=== PATIENT | male | born 1935 | race Caucasian/White ===

== ENCOUNTER → 2020-01-20 11:12 | Outpatient (BNVA) | payer MEDICARE, OTHER, SELFPAY | PROVIDERS: Family Provider Family Medicine; PCP Family Medicine; Visit Provider Nurse Practitioner Family | DX: N40.1 Benign prostatic hyperplasia with lower urinary tract symptoms (principal); R35.1 Nocturia | CPT/HCPCS: 81001 ==

== ENCOUNTER → 2020-02-17 08:15 | Outpatient (BNVA) | payer MEDICARE, OTHER, SELFPAY | PROVIDERS: Family Provider Family Medicine; PCP Family Medicine; Visit Provider Urology | DX: N40.1 Benign prostatic hyperplasia with lower urinary tract symptoms (principal); R97.20 Elevated prostate specific antigen [PSA]; R35.1 Nocturia; N39.41 Urge incontinence | CPT/HCPCS: 81001 ==

== ENCOUNTER → 2020-08-17 08:34 | Outpatient (BNVA) | payer MEDICARE, OTHER, SELFPAY | PROVIDERS: Family Provider Family Medicine; PCP Family Medicine; Visit Provider Urology | DX: N40.1 Benign prostatic hyperplasia with lower urinary tract symptoms (principal) | CPT/HCPCS: 81003 ==

== ENCOUNTER 2020-10-28 13:43 | Outpatient (CLI) | payer MEDICARE, OTHER, SELFPAY ==
--- NOTE | 2020-10-28 14:15 | USCV_ITS ---
RivasJunior john Age: 85 Gender: M : 1935 Exam Date: 10/28/2020 14:07 Ordering Phys: Tahira Chiang MD ([email or web address]) Technologist: Mojgan Urena Exam Location: [facility] [place] Indication: HISTORY: Lower extremity swelling. PROCEDURES: Bilateral duplex Venous Insufficiency study of the Deep and Superficial systems was carried out according to normal protocol with the patient in supine positon for deep system and dependent position for the superficial system. FINDINGS: There is no evidence of bilateral deep vein thrombosis. No evidence of superficial thrombosis in the bilateral saphenous system. No evidence of reflux was noted in the bilateral deep venous system. No venous reflux noted in the bilateral greater saphenous vein. No venous reflux noted in the bilateral small saphenous vein. The veins were found to be easily compressible with spontaneous blood flow. Non pulsatile flow pattern. CONCLUSIONS No evidence of DVT in the above-mentioned identifiable veins. No significant venous reflux either in the deep or in the superficial veins The venous dimensions as mentioned above Dr Joshua Contreras MD [facility] (Electronically Signed) Final Date: 28 October 2020 18:20 S
== END 2020-10-28 13:44 | disposition home or self-care (01) ==
PROVIDERS: Family Provider Family Medicine; PCP Family Medicine; Visit Provider Internal Medicine Cardiovascular Disease
DX: I83.892 Varicose veins of left lower extremity with other complications (principal); M79.89 Other specified soft tissue disorders
CPT/HCPCS: 93970

== ENCOUNTER → 2020-11-09 09:42 | Outpatient (BNVA) | payer MEDICARE, OTHER, SELFPAY | PROVIDERS: Family Provider Family Medicine; PCP Family Medicine; Visit Provider Nurse Practitioner Family | DX: R60.0 Localized edema (principal); L97.929 Non-pressure chronic ulcer of unspecified part of left lower leg with unspecified severity | CPT/HCPCS: 80048; 83880 ==

== ENCOUNTER → 2020-11-17 10:30 | Outpatient (BNVA) | payer MEDICARE, OTHER, SELFPAY | PROVIDERS: Family Provider Family Medicine; PCP Family Medicine; Visit Provider Internal Medicine Cardiovascular Disease | DX: R60.0 Localized edema (principal); I87.2 Venous insufficiency (chronic) (peripheral) | CPT/HCPCS: 80048 ==

== ENCOUNTER 2020-11-25 08:21 | Outpatient (CLI) | payer MEDICARE, OTHER, SELFPAY | END 2020-11-25 08:22 | disposition home or self-care (01) | LOC: WOUND 08:22 | PROVIDERS: Family Provider Family Medicine; PCP Family Medicine; Visit Provider Nurse Practitioner Family | DX: E11.622 Type 2 diabetes mellitus with other skin ulcer (principal); L97.821 Non-pressure chronic ulcer of other part of left lower leg limited to breakdown of skin | CPT/HCPCS: G0463 ==

== ENCOUNTER 2020-11-29 07:41 | Outpatient (CLI) | payer MEDICARE, OTHER, SELFPAY ==
--- NOTE | 2020-11-29 08:00 | USCV_ITS ---
Junior Rob Age: 85 Gender: M : 1935 Exam Date: 11/29/2020 07:55 Ordering Phys: Laurel Molina Technologist: Mojgan Urena Exam Location: [facility] [place] Indication: LOCALIZED EDEMA BP: 134 / 75 HR: 72 Rhythm: Sinus Technical Quality: Adequate MEASUREMENTS (Male / Female) Normal Values 2D ECHO LV Diastolic Diameter PLAX 4.5 cm 4.2 - 5.9 / 3.9 - 5.3 cm LV Systolic Diameter PLAX 2.7 cm IVS Diastolic Thickness 1.5 cm 0.6 - 1.0 / 0.6 - 0.9 cm IVS Systolic Thickness 1.9 cm LVPW Diastolic Thickness 0.9 cm 0.6 - 1.0 / 0.6 - 0.9 cm LVPW Systolic Thickness 1.3 cm RV Chamber Size 2.9 cm LVOT Diameter 2.0 cm LV Ejection Fraction 2D Teich 69.8 % LV Ejection Fraction MOD 2C 66.2 % LV Ejection Fraction 2C AL 68.1 % LA Diameter 3.6 cm LA Width 3.3 cm LA Height 3.0 cm RA Width 3.0 cm RA Height 3.3 cm Aorta at Sinotubular Diameter 2.3 cm M-MODE Aortic Annulus Diameter 2.8 cm LA Ao Ratio MM 1.3 MV E Point Septal Separation 0.3 cm DOPPLER AV Peak Velocity 95.0 cm/s LVOT Peak Velocity 78.0 cm/s AV Area Cont Eq vti 2.5 cm squared AV Area Cont Eq pk 2.6 cm squared MV Area PHT 4.2 cm squared Mitral E to A Ratio 0.5 MV E' Velocity 33.5 cm/s Mitral E to MV E' Ratio 8.2 Mitral E to LV E' Lateral Ratio 10.7 Mitral E to LV E' Septal Ratio 6.7 TR Peak Velocity 220.0 cm/s TR Peak Gradient 19.4 mmHg TV Peak E Velocity 61.0 cm/s PV Peak Velocity 118.5 cm/s RV Acceleration Time 0.1 s RV Ejection Time 0.3 s RV AcT/ET 0.3 FINDINGS Left Ventricle Normal left ventricular cavity size. Normal left ventricular systolic function. No regional wall motion abnormalities. Left ventricular ejection fraction is estimated at 65 %. Grade I/IV diastolic dysfunction (abnormal relaxation filling pattern), normal to mildly elevated filling pressures. Right Ventricle The right ventricle is normal in size and function. RVSP could not be calculated due to incomplete tricuspid regurgitation velocity profile. Right Atrium The right atrium is normal in size. Left Atrium The left atrium is normal in size. Mitral Valve Moderately thickened mitral valve. No mitral valve stenosis. Severe mitral valve regurgitation. Aortic Valve Moderate aortic valve calcification. No aortic valve stenosis. No aortic valve regurgitation. Tricuspid Valve Mild tricuspid valve regurgitation. Thickening of tricuspid valve noted no obvious vegetation noted could be calcification or artifact Pulmonic Valve Structurally normal pulmonic valve without significant stenosis. There is no pulmonic regurgitation. Pericardium Normal pericardium without effusion. Aorta Normal ascending aorta dimension. CONCLUSIONS 1-Normal left ventricular cavity size. Normal left ventricular systolic function. No regional wall motion abnormalities. Left ventricular ejection fraction is estimated at 65 %. Grade I/IV diastolic dysfunction (abnormal relaxation filling pattern), normal to mildly elevated filling pressures. 2-Moderate aortic valve calcification. No aortic valve stenosis. No aortic valve regurgitation. 3-Moderately thickened mitral valve. No mitral valve stenosis. Severe mitral valve regurgitation. 4-There is no pericardial effusion. 5-The right ventricle is normal in size and function. RVSP could not be calculated due to incomplete tricuspid regurgitation velocity profile. 6-There are no prior echocardiogram studies to compare. Tahira Chiang MD (Electronically Signed) Final Date: 30 November 2020 18:58 S
== END 2020-11-29 07:42 | disposition home or self-care (01) ==
PROVIDERS: PCP Family Medicine; Visit Provider Nurse Practitioner Family
DX: R60.0 Localized edema (principal); I08.0 Rheumatic disorders of both mitral and aortic valves
CPT/HCPCS: 93306

== ENCOUNTER 2020-12-02 09:23 | Outpatient (CLI) | payer MEDICARE, OTHER, SELFPAY | END 2020-12-02 09:24 | disposition home or self-care (01) | LOC: WOUND 09:24 | PROVIDERS: PCP Family Medicine; Visit Provider Nurse Practitioner Family | DX: L97.821 Non-pressure chronic ulcer of other part of left lower leg limited to breakdown of skin (principal) | CPT/HCPCS: 97597 ==

== ENCOUNTER 2020-12-09 09:52 | Outpatient (CLI) | payer MEDICARE, OTHER, SELFPAY | END 2020-12-09 09:53 | disposition home or self-care (01) | LOC: WOUND 09:53 | PROVIDERS: PCP Family Medicine; Visit Provider Nurse Practitioner Family | DX: L97.821 Non-pressure chronic ulcer of other part of left lower leg limited to breakdown of skin (principal) | CPT/HCPCS: 11042 ==

== ENCOUNTER 2020-12-16 08:48 | Outpatient (CLI) | payer MEDICARE, OTHER, SELFPAY | END 2020-12-16 08:49 | disposition home or self-care (01) | LOC: WOUND 08:50 | PROVIDERS: PCP Family Medicine; Visit Provider Nurse Practitioner Family | DX: L97.821 Non-pressure chronic ulcer of other part of left lower leg limited to breakdown of skin (principal) | CPT/HCPCS: 99212 ==

== ENCOUNTER 2021-01-06 10:16 | Outpatient (CLI) | payer MEDICARE, OTHER, SELFPAY | END 2021-01-06 10:17 | disposition home or self-care (01) | LOC: WOUND 10:17 | PROVIDERS: PCP Family Medicine; Visit Provider Emergency Medicine | DX: Z09 Encounter for follow-up examination after completed treatment for conditions other than malignant neoplasm (principal) | CPT/HCPCS: 99212 ==

== ENCOUNTER 2021-02-02 13:14 | Inpatient (IN) | payer MEDICARE, OTHER, SELFPAY ==
[2021-02-02] VITALS (9 sets, daily range): BP systolic 117–178; BP diastolic 67–99; PULSE 68–89; RESP 17–24; TEMP 36.6; O2SAT 92–99; BMI 24.1; BMI 25.2
--- NOTE | 2021-02-02 13:26 | XR_ITS ---
WS: [id number] Exam: XR chest 1V portable [id number] Date/Time of Exam: 02/02/2021 1:28 PM Reason For Exam: dyspnea/cough No priors. The lungs are clear and fully expanded. No pleural effusions. Cardiomediastinal silhouette is unremar kable for technique. Regional bony structures are intact. XR/XR chest 1V portable [id number] IMPRESSION: 1. No acute cardiopulmonary finding.
--- NOTE | 2021-02-02 13:27 | ECG_ITS ---
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 Measurements Intervals [place] Rate: 72 P: 27 VT: 173 QRS: -67 QRSD: 145 T: -10 QT: 438 QTc: 481 Interpretive Statements SINUS RHYTHM RIGHT BUNDLE BRANCH BLOCK [120+ ms QRS DURATION, UPRIGHT V1, 40+ ms S IN I/aVL/V4/V5/V6] LEFT ANTERIOR FASCICULAR BLOCK [QRS AXIS <= -45, QR IN I, RS IN II] MODERATE VOLTAGE CRITERIA FOR LVH, CONSIDER NORMAL VARIANT [MEETS CRITERIA IN ONE OF: R(aVL), S(V1), R(V5), R(V5/V6)+S(V1)] Compared to ECG 09/19/2018 17:38:10 Right bundle-branch block now present Left anterior fascicular block now present Left-axis deviation no longer present Electronically Signed On 02-02-2021 21:30:44 CDT by Joshua Contreras M.D. [id number] f
--- NOTE | 2021-02-02 13:31 | PC.NURSE ---
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
--- NOTE | 2021-02-02 13:39 | W.ED.SOB ---
HPI - SOB/Dyspnea General: Chief Complaint: Shortness of Breath/Dyspnea Stated Complaint: DIFF BREATHING Time Seen by Provider: 02/02/21 13:16 History of Present Illness: HPI Narrative: 85-year-old male arrives in the emergency room via EMS complaining of shortness of breath. Patient has been seeing Dr. Murry presumably for congestive heart failure. They stated he had fluid on his heart and lungs. Reviewing the notes from Dr. Murry's office that there is some concern of mitral regurg. He is denying any chest pain at this time. MD elicited complaint: shortness of breath and cough Pertinent past history: congestive heart failure Onset (ago): day(s) Timing: intermittent Severity: moderate Exacerbating factors: exertion and coughing Relieving factors: oxygen and rest Associated symptoms: Reports chest congestion; Deny abdominal pain, chest pain, cough, diaphoresis, dizziness, extremity pain, fever(s), hemoptysis, lightheadedness, myalgias, nausea, orthopnea, palpitations, paresthesias, polydipsia, polyuria, rash, sense of impending doom, syncope or vomiting Treatment prior to arrival: oxygen Review of Systems Const: Denies: fever(s) or diaphoresis ENMT: Denies: throat pain, ear or mastoid pain, nasal discharge or nasal congestion Card: Denies: chest pain, palpitations, lightheadedness, syncope or orthopnea Resp: Reports: chest congestion; Denies: hemoptysis GI: Denies: abdominal pain, nausea or vomiting : Denies: flank pain, dysuria, urinary frequency or urinary urgency Musc: Denies: extremity pain Skin/Breast: Denies: rash or pruritus Neuro: Denies: dizziness Endo: Denies: polyuria or polydipsia PFSH ED PFSH: Medical History Anal stricture BPH loc w urin obs/LUTS Elevated PSA HTN (hypertension) Mitral valve regurgitation Osteoarthritis Surgical History Hx of hemorrhoidectomy Hx of prostate biopsy Family History (Updated 02/02/21 @ 18:39 by Dolly Martinez MD) Father , AT AGE 79 LUNG CANCER Cancer Mother , at age 93 No problems noted. Sister , Pancreatic cancer No problems noted. Brother , Lung cancer No problems noted. Brother Cancer Social History Alcohol intake: never Adopted: No Caregiver/support person: No Lives independently: No Household members: spouse Marital status: Current occupational status: retired Physical Exam Const: COMMON NORMALS: no acute distress GENERAL APPEARANCE: cooperative and comfortable ORIENTATION/CONSCIOUSNESS: Yes awake, Yes oriented to person, Yes oriented to place and Yes oriented to time HENMT: COMMON NORMALS: normocephalic, atraumatic and hearing grossly normal bilaterally HEAD & SCALP: normocephalic and atraumatic Neck/C-Spine: COMMON NORMALS: no JVD Resp: COMMON NORMALS: normal respiratory effort, No retractions, No use of accessory muscles and clear to auscultation bilaterally AUSCULTATION: clear to auscultation bilaterally Cardio: COMMON NORMALS: no JVD, regular rate, regular rhythm and No murmurs present (Cardio) RATE: regular rate RHYTHM: regular rhythm GI: COMMON NORMALS: Soft to palpation and No hepatosplenomegaly present AUSCULTATION: Yes normoactive bowel sounds PALPATION: Yes Soft to palpation, No Tenderness to palpation present (GI), No Guarding due to palpation present (GI) and Yes No hepatosplenomegaly present Extremity: COMMON NORMALS: normal to inspection, capillary refill normal, no clubbing, cyanosis or edema, no calf tenderness and no pedal edema Neuro: SENSORIUM/ORIENTATION: Yes oriented to person, Yes oriented to place and Yes oriented to time Skin: COMMON NORMALS: no rashes or lesions noted GENERAL SKIN EXAM: no rashes or lesions noted Course Vital Signs: Vital signs: Vital Signs Temperature 97.9 F 02/04/21 14:58 Pulse Rate 76 02/04/21 14:58 Respiratory Rate 18 02/04/21 14:58 Blood Pressure 116/67 02/04/21 14:58 Pulse Oximetry 92 02/04/21 14:58 MDM - SOB/Dyspnea MDM Narrative: Medical decision making narrative: Labs imaging and EKG reviewed on the chart we will go admit the patient with bilateral PE complicated by his mitral valve regurgitation. As well as diastolic congestive heart failure and hypertension. Concerned with his underlying heart issues and about deterioration with this new PE. He is requiring significant oxygen supplementation. Discussed with hospitalist orders are written. Lab Data: Labs: Lab Results 02/02/21 02/02/21 02/02/21 13:00 13:00 13:00 WBC 11.7 10^3/uL H 10 ^3/uL (4.0-10.0) RBC 4.24 10^6/uL 10^6 /uL (4.1-5.3) Hgb 13.6 g/dL g/dL (11.7-16.6) Hct 41.5 % L % (42.0-52.0) MCV 97.9 fl H fl (80-94) MCH 32.1 pg pg (28.0-34.0) MCHC 32.8 g/dL g/dL (30.0-36.0) RDW 14.0 % % (12.1-15.1) Plt Count 177 10^3/cmm 10^3 /cmm (130-400) MPV 10.3 fL fL (7.4-10.4) Neut % (Auto) 80.3 % % Lymph % (Auto) 9.4 % % [place] % (Auto) 7.6 % % Eos % (Auto) 0.3 % % Baso % (Auto) 0.2 % % Neut # (Auto) 9.36 10^3/uL H 10 ^3/uL (1.8-7.7) Lymph # (Auto) 1.1 10^3/uL 10^3/ uL (0.8-4.8) [place] # (Auto) 0.9 10^3/uL 10^3/ uL (0.2-0.9) Eos # (Auto) 0.0 10^3/uL 10^3/ uL (0.0-0.8) Baso # (Auto) 0.0 10^3/uL 10^3/ uL (0.0-0.1) Nucleated RBC % (a uto) 0.2 % % Nucleated RBCs # 0.0 /100WBC /100W BC Specimen Type Sample Site ABG pH ABG pCO2 ABG pO2 ABG HCO3 ABG O2 Saturation ABG Base Excess Pedro Test A-a O2 Gradient Hematocrit Hgb O2 Saturation Carboxyhemoglobin Methemoglobin Total Hemoglobin Ionized Calcium O2 Delivery Device O2 Liters/Min Information Systems Analyst ID Sodium 134 mmol/L L mmol /L (136-145) Potassium 3.2 mmol/L L mmol /L (3.5-5.1) Chloride 90 mmol/L L mmol/ L (98-107) Carbon Dioxide 34 mmol/L H mmol/ L (22-29) Anion Gap 13.2 (5-19) BUN 29 mg/dL H mg/dL (8-23) Creatinine 0.9 mg/dL mg/dL (0.7-1.2) GFR Calculation Not Reportable Glucose 158 mg/dL H mg/dL (65-115) Calculated Osmolal ity 287 mOsm/kg mOsm/ kg (285-295) Calcium 8.4 mg/dL L mg/dL (8.5-10.5) Magnesium 2.3 mg/dL mg/dL (1.7-2.3) Total Bilirubin 0.2 mg/dL mg/dL (0.15-1.2) AST 19 U/L U/L (0-40) ALT 18 U/L U/L (0-41) Alkaline Phosphata se 55 IU/L IU/L (40-130) Creatine Kinase 40 U/L U/L (39-308) Troponin T Baselin e 61 ng/L H ng/L (0-15) Troponin T 120 Min [place] Delta Troponin T Troponin T Hi Sens 6Hr Troponin T Hi Sens 6Hr Delta NT-Pro-B Natriuret Pep 734 pg/mL H pg/mL (0-450) Total Protein 5.2 g/dL L g/dL (6.6-8.7) Albumin 3.4 g/dL L g/dL (3.5-5.2) Globulin 1.8 g/dL g/dL (1.3-4.6) Procalcitonin Urine Color Urine Appearance Urine pH Ur Specific Gravit y Urine Protein Urine Glucose (UA) Urine Ketones Urine Blood Urine Nitrate Urine Bilirubin Urine Urobilinogen Ur Leukocyte Kathy ase Nasal/Oral COVID-1 9 PCR 02/02/21 02/02/21 02/02/21 13:35 13:43 15:03 WBC RBC Hgb Hct MCV MCH MCHC RDW Plt Count MPV Neut % (Auto) Lymph % (Auto) [place] % (Auto) Eos % (Auto) Baso % (Auto) Neut # (Auto) Lymph # (Auto) [place] # (Auto) Eos # (Auto) Baso # (Auto) Nucleated RBC % (a uto) Nucleated RBCs # Specimen Type Arterial Sample Site Brachial, left ABG pH 7.54 H (7.35-7.45) ABG pCO2 41.4 mmHg mmHg (35-45) ABG pO2 119.0 mmHg H mmHg (80.0-100.0) ABG HCO3 35.7 mmol/L H mmo l/L (22-26) ABG O2 Saturation 99.5 ABG Base Excess 11.9 mmol/L H mmo l/L (-2.0-2.0) Pedro Test Pos A-a O2 Gradient Not Reportable Hematocrit 41.8 % L % (42-52) Hgb O2 Saturation 97.5 % % (95-100) Carboxyhemoglobin 1.1 %THgb %THgb (0.4-20.1) Methemoglobin 0.9 % % (0.4-1.5) Total Hemoglobin 13.7 g/dL L g/dL (14-18) Ionized Calcium 1.1 mmol/L mmol/L (1.1-1.4) O2 Delivery Device Nc O2 Liters/Min 4.0 % % Information Systems Analyst ID Broma Sodium 137.0 mmol/L mmol /L (131-143) Potassium 3.2 mmol/L L mmol /L (3.5-5.0) Chloride Carbon Dioxide Anion Gap BUN Creatinine GFR Calculation Glucose 190.0 mg/dL H mg/ dL (70-115) Calculated Osmolal ity Calcium Magnesium Total Bilirubin AST ALT Alkaline Phosphata se Creatine Kinase Troponin T Baselin e Troponin T 120 Min [place] 55.26 ng/L H ng/L (0-15) Delta Troponin T -5.74 ABS# L ABS# (0-10) Troponin T Hi Sens 6Hr Troponin T Hi Sens 6Hr Delta NT-Pro-B Natriuret Pep Total Protein Albumin Globulin Procalcitonin Urine Color Straw (Yellow) Urine Appearance Clear (CLEAR) Urine pH 7 (5-7) Ur Specific Gravit y 1.010 (1.005-1.030) Urine Protein Neg (Negative) Urine Glucose (UA) Norm (Normal) Urine Ketones Negative (Negative) Urine Blood Neg (Negative) Urine Nitrate Negative (Negative) Urine Bilirubin Neg (Negative) Urine Urobilinogen Norm mg/dL mg/dL (Negative) Ur Leukocyte Kathy ase Negative (Negative) Nasal/Oral COVID-1 9 PCR 02/02/21 02/03/21 02/03/21 19:15 00:30 05:29 WBC 9.5 10^3/uL 10^3/ uL (4.0-10.0) RBC 3.85 10^6/uL L 10 ^6/uL (4.1-5.3) Hgb 12.4 g/dL g/dL (11.7-16.6) Hct 37.5 % L % (42.0-52.0) MCV 97.4 fl H fl (80-94) MCH 32.2 pg pg (28.0-34.0) MCHC 33.1 g/dL g/dL (30.0-36.0) RDW 13.8 % % (12.1-15.1) Plt Count 148 10^3/cmm 10^3 /cmm (130-400) MPV 10.0 fL fL (7.4-10.4) Neut % (Auto) 78.1 % % Lymph % (Auto) 10.4 % % [place] % (Auto) 8.3 % % Eos % (Auto) 0.1 % % Baso % (Auto) 0.2 % % Neut # (Auto) 7.44 10^3/uL 10^3 /uL (1.8-7.7) Lymph # (Auto) 1.0 10^3/uL 10^3/ uL (0.8-4.8) [place] # (Auto) 0.8 10^3/uL 10^3/ uL (0.2-0.9) Eos # (Auto) 0.0 10^3/uL 10^3/ uL (0.0-0.8) Baso # (Auto) 0.0 10^3/uL 10^3/ uL (0.0-0.1) Nucleated RBC % (a uto) 0.2 % % Nucleated RBCs # 0.0 /100WBC /100W BC Specimen Type Sample Site ABG pH ABG pCO2 ABG pO2 ABG HCO3 ABG O2 Saturation ABG Base Excess Pedro Test A-a O2 Gradient Hematocrit Hgb O2 Saturation Carboxyhemoglobin Methemoglobin Total Hemoglobin Ionized Calcium O2 Delivery Device O2 Liters/Min Information Systems Analyst ID Sodium Potassium Chloride Carbon Dioxide Anion Gap BUN Creatinine GFR Calculation Glucose Calculated Osmolal ity Calcium Magnesium Total Bilirubin AST ALT Alkaline Phosphata se Creatine Kinase Troponin T Baselin e Troponin T 120 Min [place] Delta Troponin T Troponin T Hi Sens 6Hr 58.17 ng/L H ng/L (0-15) Troponin T Hi Sens 6Hr Delta -2.83 ng/L L ng/L (0-12) NT-Pro-B Natriuret Pep Total Protein Albumin Globulin Procalcitonin Urine Color Urine Appearance Urine pH Ur Specific Gravit y Urine Protein Urine Glucose (UA) Urine Ketones Urine Blood Urine Nitrate Urine Bilirubin Urine Urobilinogen Ur Leukocyte Kathy ase Nasal/Oral COVID-1 9 PCR Not detected 02/03/21 02/03/21 05:29 05:29 WBC RBC Hgb Hct MCV MCH MCHC RDW Plt Count MPV Neut % (Auto) Lymph % (Auto) [place] % (Auto) Eos % (Auto) Baso % (Auto) Neut # (Auto) Lymph # (Auto) [place] # (Auto) Eos # (Auto) Baso # (Auto) Nucleated RBC % (a uto) Nucleated RBCs # Specimen Type Sample Site ABG pH ABG pCO2 ABG pO2 ABG HCO3 ABG O2 Saturation ABG Base Excess Pedro Test A-a O2 Gradient Hematocrit Hgb O2 Saturation Carboxyhemoglobin Methemoglobin Total Hemoglobin Ionized Calcium O2 Delivery Device O2 Liters/Min Information Systems Analyst ID Sodium 136 mmol/L mmol/L (136-145) Potassium 3.1 mmol/L L mmol /L (3.5-5.1) Chloride 96 mmol/L L mmol/ L (98-107) Carbon Dioxide 34 mmol/L H mmol/ L (22-29) Anion Gap 9.1 (5-19) BUN 26 mg/dL H mg/dL (8-23) Creatinine 0.6 mg/dL L mg/dL (0.7-1.2) GFR Calculation Not Reportable Glucose 95 mg/dL mg/dL (65-115) Calculated Osmolal ity 287 mOsm/kg mOsm/ kg (285-295) Calcium 8.1 mg/dL L mg/dL (8.5-10.5) Magnesium Total Bilirubin AST ALT Alkaline Phosphata se Creatine Kinase Troponin T Baselin e Troponin T 120 Min [place] Troponin T Troponin T Hi Sens 6Hr Troponin T Hi Sens 6Hr [place] NT-Pro-B Natriuret Pep Total Protein Albumin Globulin Procalcitonin 0.08 ng/mL ng/mL (0-0.5) Urine Color Urine Appearance Urine pH Ur Specific Gravit y Urine Protein Urine Glucose (UA) Urine Ketones Urine Blood Urine Nitrate Urine Bilirubin Urine Urobilinogen Ur Leukocyte Kathy ase Nasal/Oral COVID-1 9 PCR Discharge Plan Discharge Patient Disposition: Admitted As Inpatient Admit Provider: Dolly Martinez Clinical Impression: Pulmonary embolism, Mitral valve regurgitation, Diastolic CHF, DVT (deep venous thrombosis), HTN (hypertension), BPH (benign prostatic hyperplasia) Condition: Stable Coding Level of Care Code ED Telecommunications Linesworker for Chg Fwd Exam Comprehensive
[2021-02-02 13:48] LABS: ABG PCO2 41.4 mmHg (35-45); ABG PH Result 7.54 (7.35-7.45); Arterial Blood Gas Hematocrit 41.8 % (42-52); Base Excess ABG 11.9 mmol/L (-2.0-2.0); Blood Gas Allen Test Pos; Blood Gas Sample Type Arterial; Carboxyhemoglobin 1.1 %THgb (0.4-20.1); HCO3 ABG 35.7 mmol/L (22-26); HGB O2 Sat 97.5 % (95-100); Ionized Calcium Level - ABG 1.1 mmol/L (1.1-1.4); Methemoglobin 0.9 % (0.4-1.5); Oxygen Saturation ABG 99.5; Potassium Level - ABG 3.2 mmol/L (3.5-5.0); Total Hemoglobin 13.7 g/dL (14-18)
[2021-02-02 13:50] LABS: Blood Gas Operator Identificat BROMA; Blood Gas Sample Site Brachial, left; Oxygen Device NC
[2021-02-02 13:51] LABS: Basophils % 0.2 %; Eosinophils % 0.3 %; Hematocrit 41.5 % (42.0-52.0); Hemoglobin 13.6 g/dL (11.7-16.6); Lymphocytes # 1.1 10^3/uL (0.8-4.8); Lymphocytes % 9.4 %; Mean Corpuscular HGB Conc 32.8 g/dL (30.0-36.0); Mean Corpuscular Hemoglobin 32.1 pg (28.0-34.0); Mean Corpuscular Volume 97.9 fl (80-94); Mean Platelet Volume 10.3 fL (7.4-10.4); Monocytes # 0.9 10^3/uL (0.2-0.9); Monocytes % 7.6 %; Neutrophils # 9.36 10^3/uL (1.8-7.7); Neutrophils % 80.3 %; Nucleated Red Blood Cells % 0.2 %; Platelet Count 177 10^3/cmm (130-400); Red Blood Count 4.24 10^6/uL (4.1-5.3); White Blood Count 11.7 10^3/uL (4.0-10.0)
[2021-02-02 13:53] LABS: Add Urine Microscopic? NO; Charge for UA Resulting for Rev
[2021-02-02 14:05] LABS: Troponin(5th) Baseline 61 ng/L (0-15)
[2021-02-02 14:11] LABS: Alanine Aminotransferase 18 U/L (0-41); Albumin Level 3.4 g/dL (3.5-5.2); Alkaline Phosphatase 55 IU/L (40-130); Anion Gap 13.2 (5-19); Aspartate Amino Transferase 19 U/L (0-40); Blood Urea Nitrogen 29 mg/dL (8-23); Calcium 8.4 mg/dL (8.5-10.5); Carbon Dioxide 34 mmol/L (22-29); Chloride 90 mmol/L (98-107); Creatine Phosphokinase 40 U/L (39-308); Globulin 1.8 g/dL (1.3-4.6); Glucose 158 mg/dL (65-115); Magnesium 2.3 mg/dL (1.7-2.3); NT Pro B Type Natriuretic Pept 734 pg/mL (0-450); Osmolality Calculated 287 mOsm/kg (285-295); Potassium 3.2 mmol/L (3.5-5.1); Sodium 134 mmol/L (136-145); Total Bilirubin 0.2 mg/dL (0.15-1.2); Total Protein 5.2 g/dL (6.6-8.7)
[2021-02-02 14:15] LABS: Bilirubin Urine Neg (Negative); Blood Urine Neg (Negative); Glucose Urine UA Norm (Normal); Ketones Urine Negative (Negative); Leukocyte Esterase Urine Negative (Negative); Nitrate Urine Negative (Negative); Protein Urine Neg (Negative); Urine Appearance Clear (CLEAR); Urine Color Straw (Yellow); Urobilinogen Urine Norm (Negative); pH Urine 7 (5-7)
--- NOTE | 2021-02-02 15:27 | ECG_ITS ---
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 Measurements Intervals [place] Rate: 72 P: 27 MD: 173 QRS: -67 QRSD: 145 T: -10 QT: 438 QTc: 481 Interpretive Statements SINUS RHYTHM RIGHT BUNDLE BRANCH BLOCK [120+ ms QRS DURATION, UPRIGHT V1, 40+ ms S IN I/aVL/V4/V5/V6] LEFT ANTERIOR FASCICULAR BLOCK [QRS AXIS <= -45, QR IN I, RS IN II] MODERATE VOLTAGE CRITERIA FOR LVH, CONSIDER NORMAL VARIANT [MEETS CRITERIA IN ONE OF: R(aVL), S(V1), R(V5), R(V5/V6)+S(V1)] Compared to ECG 09/19/2018 17:38:10 Right bundle-branch block now present Left anterior fascicular block now present Left-axis deviation no longer present Electronically Signed On 02-02-2021 21:48:42 CDT by Joshua Contreras M.D. [id number] f
[2021-02-02 15:38] LABS: Troponin 5 2HR 55.26 ng/L (0-15)
--- NOTE | 2021-02-02 15:40 | CTR_ITS ---
PROCEDURE INFORMATION: Exam: CTA Chest With Contrast Exam date and time: 02/02/2021 3:40 PM Age: 85 years old Clinical indication: Shortness of breath; Additional info: Hypoxia TECHNIQUE: Imaging protocol: Computed tomographic angiography of the chest with contrast. 3D rendering (Not supervised by radiologist): MIP and/or 3D reconstructed images were created by the technologist. Radiation optimization: All CT scans at this facility use at least one of these dose optimization techniques: automated exposure control; mA and/or kV adjustment per patient size (includes targeted exams where dose is matched to clinical indication); or iterative reconstruction. Contrast material: OMNI 350; Contrast volume: 71 ml; Contrast route: INTRAVENOUS (IV); COMPARISON: CR XR chest 1V portable [id number] 02/02/2021 1:33 PM RADIATION DOSE METRICS: Total DLP (mGy-cm): 492.8 FINDINGS: Pulmonary arteries: There are filling defects in upper and lower lobe pulmonary artery branches on both sides consistent with acute pulmonary embolism. Aorta: Unremarkable. No aortic aneurysm. No aortic dissection. Other arteries: There are atherosclerotic changes in the descending thoracic aorta.There is no thoracic aortic aneurysm or dissection. Lungs: There is some areas of partial atelectasis at the right lung base and in the right middle lobe and minimal dependent atelectasis at the left base. No acute infiltrate is otherwise identified. Pleural spaces: Unremarkable. No pneumothorax. No pleural effusion. Heart: There is no evidence of right heart strain, the RV to LV ratio is just under 1. Lymph nodes: Small AP window and paratracheal lymph nodes. No adenopathy. Adrenal glands: There is a 5 cm left adrenal mass not fully imaged on this examination containing macroscopic fat most likely benign adenoma.No follow-up is necessary. (Reference: Bladimir) Bones/joints: There are chronic appearing compression deformities at T8 and T9 and involving superior endplate of T12 which is not fully imaged on this examination. Soft tissues: Unremarkable. CT/CT angio chest PE protcl [id number] IMPRESSION: 1. Acute pulmonary embolism. 2. 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 REFERENCES: Bladimir ROLLINS, et al. Management of Incidental Adrenal Masses: A White Paper of the ACR Incidental Findings Committee. J Am [place] Radiol. 2017;14(8):8739-5827. Radiation Dose CTDIVOL = (mGy): DLP = 492.8 (mGy-cm)
[2021-02-02 15:44] LABS: Troponin 5 2HR Delta -5.74 ABS# (0-10)
[2021-02-02] MEDS: iohexol 350 mg/mL 100 mL Btl IV (15:57)
--- NOTE | 2021-02-02 17:12 | PC.NURSE ---
PATIENT RESTING IN BED, WOULD LIKE UPDATE FROM PHYSICIAN. PROVIDER NOTIFIED.
--- NOTE | 2021-02-02 17:29 | USCV_ITS ---
Rob, Crow Age: 85 Gender: M : 1935 Exam Date: 02/02/2021 18:39 Ordering Phys: John Ansari DO Technologist: Ceferino Sykes [place] [facility] [place]: CHF BP: 160 / 94 HR: 149 Rhythm: Sinus Technical Quality: Adequate MEASUREMENTS (Male / Female) Normal Values 2D ECHO LV Diastolic Diameter PLAX 4.1 cm 4.2 - 5.9 / 3.9 - 5.3 cm LV Systolic Diameter PLAX 2.0 cm IVS Diastolic Thickness 0.9 cm 0.6 - 1.0 / 0.6 - 0.9 cm IVS Systolic Thickness 1.1 cm LVPW Diastolic Thickness 1.1 cm 0.6 - 1.0 / 0.6 - 0.9 cm LVPW Systolic Thickness 1.1 cm LVOT Diameter 2.0 cm LV Ejection Fraction 2D Teich 77.1 % LV Ejection Fraction MOD 2C 61.2 % LV Ejection Fraction 2C AL 62.2 % LA Diameter 3.6 cm LA Width 4.4 cm LA Height 4.0 cm RA Width 2.9 cm RA Height 3.3 cm Aorta at Sinotubular Diameter 2.6 cm DOPPLER AV Peak Velocity 116.0 cm/s LVOT Peak Velocity 89.0 cm/s AV Area Cont Eq vti 2.3 cm squared AV Area Cont Eq pk 2.5 cm squared MV Area PHT 5.0 cm squared Mitral E to A Ratio 0.6 MV E' Velocity 34.0 cm/s Mitral E to MV E' Ratio 9.9 Mitral E to LV E' Lateral Ratio 7.6 Mitral E to LV E' Septal Ratio 14.0 TR Peak Velocity 159.7 cm/s TR Peak Gradient 10.2 mmHg TV Peak E Velocity 87.0 cm/s Right Atrial Pressure 3.0 mmHg Pulmonary Artery Systolic Pressu 13.2 mmHg FINDINGS Left Ventricle Normal left ventricular cavity size. Normal left ventricular systolic function. No regional wall motion abnormalities. Left ventricular ejection fraction is estimated at 60 %. Grade I/IV diastolic dysfunction (abnormal relaxation filling pattern), normal to mildly elevated filling pressures. Right Ventricle The right ventricle is normal in size and function. Right Atrium The right atrium is normal in size. Left Atrium The left atrium is normal in size. Mitral Valve Mildly thickened mitral valve. No mitral valve stenosis. Moderate mitral valve regurgitation. Aortic Valve Moderate aortic valve calcification. No aortic valve stenosis. No aortic valve regurgitation. Tricuspid Valve Structurally normal tricuspid valve without significant stenosis or regurgitation. Pulmonary artery systolic pressure is normal. Pulmonic Valve Structurally normal pulmonic valve without significant stenosis. There is no pulmonic regurgitation. Pericardium Normal pericardium without effusion. Aorta Normal ascending aorta dimension. CONCLUSIONS 1-Normal left ventricular cavity size. Normal left ventricular systolic function. No regional wall motion abnormalities. Left ventricular ejection fraction is estimated at 60 %. Grade I/IV diastolic dysfunction (abnormal relaxation filling pattern), normal to mildly elevated filling pressures. 2-Mildly thickened mitral valve. No mitral valve stenosis. Moderate mitral valve regurgitation. 3-Moderate aortic valve calcification. No aortic valve stenosis. No aortic valve regurgitation. 4-There is no pericardial effusion. 5-No significant valve abnormalities. 6-When compared to the prior echocardiograms state dated 30 November 2020 there is no significant change, mitral valve regurgitation stays around moderate. Tahira Chiang MD (Electronically Signed) Final Date: 10 February 2021 15:21 S
--- NOTE | 2021-02-02 17:42 | PM.HP ---
Providers/Chief Complaint Primary Care Provider: Alphonso Glass MD Chief Complaint: DIFF BREATHING History of Present Illness Junior Keara Rivas is a 85 year old male with past medical history of uncontrolled hypertension, diastolic heart failure, BPH, mitral valve regurgitation and osteoarthritis presented to the ER today for shortness of breath. He is not on any oxygen at home and requiring 4 L nasal cannula here. Patient on valsartan 80 mg twice daily, Lasix 40 twice daily, 2.5 metolazone daily if worsening shortness of breath. He states he saw his vp marketing 2 days ago and he was told he is fluid overloaded. Over the past 3 days he has been feeling progressively short of breath. He has not missed his diuretic doses at all. He has been diagnosed with pulmonary embolism in her ear today. He reports a 17 pound weight loss from fluid overload in last couple of months. Does report having a normal colonoscopy few years ago. Denies pain in calves. Denies history of PE denies history of cancer. Has occasional constipation and uses Dulcolax and MiraLAX for it. He does report a family history of lung cancer in brother, pancreatic cancer in sister with lung cancer and another brother with bone cancer. He himself has never been diagnosed with any type of cancer so far. Denies chest pain, abdominal pain, back pain. Has no other symptoms except shortness of breath. Patient would like to be DNR/DNI both him and his are in agreement. ED course: On arrival to ER temp 97.8, heart rate 68, respiratory 22, blood pressure 131/83, pulse ox 99% CTA performed which showed acute pulmonary embolism in upper and lower lobe pulmonary artery branches on both sides. There is no evidence of right heart strain RV to LV ratio is under 1. 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 Baseline troponin 61, delta troponin -5.74, albumin 3.4, sodium 134, potassium 3.2, CO2 34. ABG 7.54/41/119/35.7. WBC 11.7, hemoglobin 13.6. Chart review: Patient was recently seen by Dr. Chiang 01/31/2021. Mitral valve clipping versus replacement were discussed with the patient and he was referred to Dr. Gayle at [facility] for evaluation. Last Echo 11/29/2020: Normal left ventricle, EF 65%, grade 1 diastolic dysfunction, severe mitral valve regurgitation. Home medications: alfuzosin ER 10 mg PO DAILY carvedilol 25 mg PO BID clonidine HCl 0.1 mg PO BID docusate sodium (Colace) 100 mg PO DAILY finasteride 5 mg PO QDAY furosemide 40 mg PO BID metolazone 2.5 mg PO DAILY potassium chloride ER 20 mEq PO BID psyllium husk (Metamucil) 0.52 grams PO DAILY spironolactone 12.5 mg PO BID valsartan 80 mg PO BID Review of Systems General: Reports: 10 or more systems reviewed and unremarkable except in HPI and below Medications/Allergies Home Medications Medication Instructions Recorded Confirmed Last Taken Type docusate sodium 100 mg capsule 100 mg PO DAILY 01/20/20 01/31/21 Unknown History finasteride 5 mg tablet 5 mg PO QDAY #90 tab 02/17/20 01/31/21 Unknown Rx psyllium husk 0.52 gram capsule 0.52 gm PO DAILY 02/17/20 01/31/21 Unknown History alfuzosin 10 mg tablet,extended 10 mg PO DAILY #90 tab 08/17/20 01/31/21 Unknown Rx release 24 hr clonidine HCl 0.1 mg tablet 0.1 mg PO BID #90 tab 11/19/20 01/17/21 Unknown Rx carvedilol 25 mg tablet 25 mg PO BID tab 01/17/21 01/31/21 Unknown History furosemide 40 mg tablet 40 mg PO BID tab 01/17/21 01/31/21 Unknown History potassium chloride 20 mEq 20 meq PO BID tab 01/17/21 01/31/21 Unknown History tablet,extended release spironolactone 25 mg tablet 12.5 mg PO BID tab 01/17/21 01/31/21 Unknown History valsartan 80 mg tablet 80 mg PO BID #180 tab 01/17/21 01/31/21 Unknown Rx metolazone 2.5 mg tablet 2.5 mg PO DAILY #60 tab 01/25/21 01/31/21 Unknown Rx Allergies Allergy/AdvReac Type Severity Reaction Status Date / Time No Known Allergies Allergy Verified 02/02/21 13:23 PFSH Acute PFSH: Medical History Anal stricture BPH loc w urin obs/LUTS Elevated PSA HTN (hypertension) Mitral valve regurgitation Osteoarthritis Surgical History Hx of hemorrhoidectomy Hx of prostate biopsy Family History (Updated 02/02/21 @ 18:39 by Dolly Martinez MD) Father , AT AGE 79 LUNG CANCER Cancer Mother , at age 93 No problems noted. Sister , Pancreatic cancer No problems noted. Brother , Lung cancer No problems noted. Brother Cancer Social History Alcohol intake: never Adopted: No Caregiver/support person: No Lives independently: No Household members: spouse Marital status: Current occupational status: retired Vitals/I&O/Wt Last Vital Signs Temp 97.8 F 02/02/21 13:24 Pulse 75 02/02/21 17:07 Resp 22 H 02/02/21 17:07 BP 176/99 02/02/21 17:07 Pulse Ox 98 02/02/21 17:07 Weight last 48 hrs Weight 72.121 kg Physical Exam Narrative: EXAM NARRATIVE: General: Alert oriented x3, patient seen, present at bedside. HEENT: Normocephalic, atraumatic, EOMI, breathing 4 L nasal cannula Cardio: Regular rate rhythm, normal S1-S2, no murmurs rubs gallops, Respiratory: Significant crackles up to mid lungs bilateral lung byrnes GI: Abdomen soft, nontender, nondistended, normoactive bowel sounds present all 4 quadrants, Neuro: No gross focal neurologic deficit Behavior: Appropriate and cooperative Extremities: Pulses 2+, no edema, no cyanosis, wearing compression stockings, Satish sign negative, Skin: Visible skin intact, no rashes Data : 02/02/21 13:00 02/02/21 13:00 A&P Assessment and plan (1) Mitral valve regurgitation: Patient presented to ER with shortness of breath. CT was performed and was found to have PE bilaterally upper and lower lobes and smaller branches. He is requiring 4 L nasal cannula and is not on any oxygen at home. He has a history of severe mitral valve regurgitation and recently has been referred to Dr. Gayle for mitral valve replacement versus clipping at [facility]. His most recent visit with vp marketing was January 31, 2021. We will admit patient to the hospital for pulmonary embolism. Will anticoagulate with full dose Lovenox 80 mg twice daily. Will transition to Eliquis by tomorrow. We will continue all home medications. Will monitor on telemetry. Continue to monitor blood pressure and adjust medications as needed. Of note patient's valsartan was recently decreased to 80 twice daily from 160 twice daily due to hypotension. Due to patient's strong family history of malignancy I will check CT abdomen pelvis for completion. I will also check an FOBT. Patient will also require hypercoagulable work-up as an outpatient once off anticoagulation. Patient is fluid overloaded today, significant crackles bilaterally up to mid lung byrnes. On 4 L nasal cannula at this time. Will prescribe Lasix 40 IV twice daily and reassess tomorrow. Fluids: Not indicated Electrolytes: Replete as needed Diet: Cardiac low-sodium diet Activity: As tolerated DVT prophylaxis: On full dose Lovenox for PE Status: Acute Qualifiers: Cardiac valve disease etiology: nonrheumatic Qualified Code(s): I34.0 - Nonrheumatic mitral (valve) insufficiency (2) Diastolic CHF: Status: Acute Qualifiers: Heart failure chronicity: chronic Qualified Code(s): I50.32 - Chronic diastolic (congestive) heart failure (3) HTN (hypertension): Status: Acute Qualifiers: Hypertension type: essential hypertension Qualified Code(s): I10 - Essential (primary) hypertension (4) BPH (benign prostatic hyperplasia): Status: Acute Attestations Medical Necessity Statement*: Anticipate hospital stay 24 to 48 hours. Time Spent in Patient Care: 16 - 35 minutes Coding Level of Care Code Acute Correspondence Analyst for [facility] Fwd Diagnoses Mitral valve regurgitation I34.0 Cardiac valve disease etiology: nonrheumatic Diastolic CHF I50.32 Heart failure chronicity: chronic HTN (hypertension) I10 Hypertension type: essential hypertension BPH (benign prostatic hyperplasia) N40.0
[2021-02-02] MEDS: enoxaparin 80 mg/0.8 mL Syringe SUBCUT (18:47)
--- NOTE | 2021-02-02 19:27 | ECG_ITS ---
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 Measurements Intervals [place] Rate: 71 P: 17 TX: 185 QRS: -64 QRSD: 136 T: -14 QT: 451 QTc: 492 Interpretive Statements SINUS RHYTHM RIGHT BUNDLE BRANCH BLOCK [120+ ms QRS DURATION, UPRIGHT V1, 40+ ms S IN I/aVL/V4/V5/V6] LEFT ANTERIOR FASCICULAR BLOCK [QRS AXIS <= -45, QR IN I, RS IN II] VOLTAGE CRITERIA FOR LVH [MEETS CRITERIA IN ONE OF: R(aVL), S(V1), R(V5), R(V5/V6)+S(V1)] Compared to ECG 02/02/2021 13:23:22 No significant changes Electronically Signed On 02-02-2021 21:52:37 CDT by Joshua Contreras M.D. [id number]
[2021-02-02 20:13] LABS: Troponin 5 6HR 58.17 ng/L (0-15)
[2021-02-02 20:14] LABS: Troponin 5 6HR Delta -2.83 ng/L (0-12)
[2021-02-02] MEDS: FUROsemide 40 mg Tablet PO (20:33)
[2021-02-02] MEDS: potassium chloride ER 20 mEq Tablet PO (20:34)
[2021-02-02] MEDS: losartan 50 mg Tablet 25 MG PO (20:34)
[2021-02-02] MEDS: spironolactone 25 mg Tablet 12.5 MG PO (20:37)
[2021-02-02] MEDS: carvedilol 25 mg Tablet PO (20:37)
[2021-02-02] MEDS: cloNIDine 0.1 mg Tablet PO (20:37)
[2021-02-02] MEDS: finasteride 5 mg Tablet PO (20:37)
[2021-02-03] VITALS (11 sets, daily range): BP systolic 102–158; BP diastolic 63–91; PULSE 66–83; RESP 16–18; TEMP 36.3–36.9; O2SAT 91–97
[2021-02-03 05:50] LABS: Basophils % 0.2 %; Eosinophils % 0.1 %; Hematocrit 37.5 % (42.0-52.0); Hemoglobin 12.4 g/dL (11.7-16.6); Lymphocytes % 10.4 %; Mean Corpuscular HGB Conc 33.1 g/dL (30.0-36.0); Mean Corpuscular Hemoglobin 32.2 pg (28.0-34.0); Mean Corpuscular Volume 97.4 fl (80-94); Monocytes # 0.8 10^3/uL (0.2-0.9); Monocytes % 8.3 %; Neutrophils # 7.44 10^3/uL (1.8-7.7); Neutrophils % 78.1 %; Nucleated Red Blood Cells % 0.2 %; Platelet Count 148 10^3/cmm (130-400); Red Blood Count 3.85 10^6/uL (4.1-5.3); Red Cell Distribution Width 13.8 % (12.1-15.1); White Blood Count 9.5 10^3/uL (4.0-10.0)
[2021-02-03] MEDS: enoxaparin 80 mg/0.8 mL Syringe 70 MG SUBCUT ×2 (06:03→19:19)
[2021-02-03 06:11] LABS: Anion Gap 9.1 (5-19); Blood Urea Nitrogen 26 mg/dL (8-23); Calcium 8.1 mg/dL (8.5-10.5); Carbon Dioxide 34 mmol/L (22-29); Chloride 96 mmol/L (98-107); Glucose 95 mg/dL (65-115); Osmolality Calculated 287 mOsm/kg (285-295); Potassium 3.1 mmol/L (3.5-5.1); Sodium 136 mmol/L (136-145)
--- NOTE | 2021-02-03 06:44 | XR_ITS ---
WS: [id number] PORTABLE CHEST HISTORY: Short of breath. COMPARISON: 02/02/2021 Moderate elevation of the RIGHT hemidiaphragm. Linear atelectasis at the LEFT lung base. No pneumonia . No interval change. Normal vasculature. No pleural effusion or pneumothorax. Cardiac size: Normal. Mediastinum/Aorta: Mild atherosclerosis aorta. Aorta is ectatic. No osseous abnormality seen. XR/XR chest 1V portable [id number] IMPRESSION: 1. Subsegmental atelectasis at the LEFT lung base. 2. No pneumonia. 3. Stable elevated RIGHT diaphragm.
--- NOTE | 2021-02-03 07:55 | XR_ITS ---
WS: [id number] Exam: XR chest 1V portable [id number] Date/Time of Exam: 02/03/2021 8:01 AM Reason For Exam: SOB Comparison 02/03/2021. The lungs are clear and fully inflated. Heart size is normal. The mediastinum is not widened. Regiona l bony elements are intact. Atherosclerotic plaquing of the thoracic aorta. XR/XR chest 1V portable [id number] IMPRESSION: 1. No acute cardiopulmonary finding.
--- NOTE | 2021-02-03 08:06 | PC.PHAR ---
pts macrina verified the pts medications-amcrina states the pt takes metolazone 2.5mg every 3 days and takes 10meq bid of kcl-macrina states on the days he doesnt take the metolazone he takes 20meq bid of kcl-pts states the medications entered are the medications he takes no meds pulled up on ext med history and [facility] is closed to verify when last filled
[2021-02-03] MEDS: cloNIDine 0.1 mg Tablet PO ×2 (08:12→17:35)
[2021-02-03] MEDS: finasteride 5 mg Tablet PO (08:12)
[2021-02-03] MEDS: spironolactone 25 mg Tablet 12.5 MG PO ×2 (08:12→17:36)
[2021-02-03] MEDS: docusate sodium 100 mg Capsule PO (08:13)
[2021-02-03] MEDS: FUROsemide 10 mg/mL SDV 4mL 40 MG IVP (08:13)
[2021-02-03] MEDS: losartan 50 mg Tablet 25 MG PO ×2 (08:13→17:38)
[2021-02-03] MEDS: carvedilol 25 mg Tablet PO ×2 (08:13→17:35)
[2021-02-03] MEDS: potassium chloride oral liq 20 mEq/15 mL UDC 40 MEQ PO (08:35)
[2021-02-03] MEDS: alfuzosin 10 mg ER Tablet PO (08:35)
[2021-02-03 08:36] LABS: Procalcitonin 0.08 ng/mL (0-0.5)
--- NOTE | 2021-02-03 10:18 | PC.CHAP ---
Pastoral Care Encounter/Spiritual Assessment Type of Contact [] Declined administration specialist visit [] Patient/Family/Request visit [] Outpatient visit [] Follow-up visit [] Physician referral [] Code/Alert [] Routine visit [] Staff referral [] Actively dying [] Patient sleeping [] Family support [] [] Out of room [] Palliative care [] [] Receiving care in room [] Pre-surgical visit [] Trauma [] Long length of stay [] ICU visit [x] Other: Isolation Relational/Emotional Strength [] Patient feels connected with others/family/visitors/staff [] Distress [] Loneliness/isolation [] Abandonment Spirituality of Patient [] Person of Verito [] Attends Pentecostalism of their [place] [] Believes in Prayer [] Reads Bible or Islam materials [] There are Spiritual issues to be addressed Production Department Supervisor Interventions [] Prayer [] Active listening [] Non-anxious presence [] Spiritual/emotional support [] Crisis/trauma care [] Spiritual counseling [] Bereavement support [] Provided bereavement packet [] Provided Bible/devotional materials [] Provided toy/stuffed animal, coloring book to patient or family member [] Provided Communion [] Anointing/Allen [] Salvation [] Completed spiritual assessment [] Other: Impact on Illness or Injury [] Angry [] Fearful [] Anxious [] Often cries [] Exhaustion [] Unable to work [] Unable to attend episcopal [] Unable to walk/stand [] Unable to read [] Unable to drive [] Unable to eat/drink [] Unable to sleep [] Unable to be with family [] Patient intubated [] Other: Summary Isolation Time spent with patient 5 mins
--- NOTE | 2021-02-03 11:32 | PM.PN ---
Subjective Subjective: Interval history: Seen and examined today. Patient states he feels better compared to yesterday feels good having the oxygen on. He is still seem to be on 3.5 L in the room. I informed the patient of his lower extremity Doppler results. Patient has a DVT in the right superficial femoral vein. He denies any recent travel. Vitals/I&O/Wt Last Vital Signs Temp 97.4 F L 02/03/21 11:19 Pulse 66 02/03/21 11:19 Resp 18 02/03/21 11:19 BP 102/63 02/03/21 11:19 Pulse Ox 97 02/03/21 11:19 02/02/21 02/03/21 02/03/21 22:59 06:59 14:59 Intake Total 100 / 100 Output Total 525 / 525 400 / 400 Balance -425 / -425 -400 / -400 Weight last 48 hrs Weight 75.296 kg Weight 72.121 kg Physical Exam Narrative: EXAM NARRATIVE: General: Alert oriented x3, seen watching TV appearing very comfortable. HEENT: Normocephalic, atraumatic, EOMI, breathing 3.5 L nasal cannula Cardio: Regular rate rhythm, normal S1-S2, no murmurs rubs gallops, Respiratory: Crackles present bilaterally base of lungs bilateral lung byrnes. Significant improvement compared to yesterday. GI: Abdomen soft, nontender, nondistended, normoactive bowel sounds present all 4 quadrants, Behavior: Appropriate and cooperative Extremities: Pulses 2+, no edema, no cyanosis, Data : 02/03/21 05:29 02/03/21 05:29 Micro: Microbiology 02/03/21 09:40 Bacterial Antigens - Final Urine,Clean Catch 02/03/21 09:40 Legionella Urinary Antigen - Final Urine,Clean Catch A&P Assessment and plan (1) Mitral valve regurgitation: Patient presented to ER with shortness of breath. CT was performed and was found to have PE bilaterally upper and lower lobes and smaller branches. He is requiring 4 L nasal cannula and is not on any oxygen at home. He has a history of severe mitral valve regurgitation and recently has been referred to Dr. Gayle for mitral valve replacement versus clipping at [facility]. His most recent visit with derivatives trader was January 31, 2021. Patient was admitted for pulmonary embolism and is also positive for DVT in the right superficial femoral vein. At this time it seems to be unprovoked DVT. He is currently on full dose Lovenox 80 twice daily. There was a question of right heart strain that was told to me by ER physician. I will wait for patient's echo results. Will be switching to Eliquis 10 mg twice daily for 7 days followed by 5 mg twice daily. I will change Lasix 40 mg IV twice daily to once daily for today and transition to oral pending clinical improvement. We will order home O2 evaluation at discharge. Patient might requiring oxygen at home. We will continue all home medications. Will monitor on telemetry. Continue to monitor blood pressure and adjust medications as needed. Of note patient's valsartan was recently decreased to 80 twice daily from 160 twice daily due to hypotension. Blood pressure has been stable during this hospital admission. Due to patient's strong family history of malignancy I I would recommend CT chest abdomen pelvis as a screening tool including an FOBT. Patient will also require hypercoagulable work-up as an outpatient once off anticoagulation. I will let patient follow-up outpatient with primary care physician for further investigation of his unprovoked DVT and PE. Fluids: Not indicated Electrolytes: Replete as needed Diet: Cardiac low-sodium diet Activity: As tolerated DVT prophylaxis: On full dose Lovenox for PE Status: Acute Qualifiers: Cardiac valve disease etiology: nonrheumatic Qualified Code(s): I34.0 - Nonrheumatic mitral (valve) insufficiency (2) Diastolic CHF: Status: Acute Qualifiers: Heart failure chronicity: chronic Qualified Code(s): I50.32 - Chronic diastolic (congestive) heart failure (3) HTN (hypertension): Status: Acute Qualifiers: Hypertension type: essential hypertension Qualified Code(s): I10 - Essential (primary) hypertension (4) BPH (benign prostatic hyperplasia): Status: Acute Attestations Medical Necessity Statement*: Still requiring 3-1/2 L nasal cannula. Has acute DVT and PE. Will need continued diuresis for now. 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
[2021-02-03 15:37] LABS: Coronavirus Test Green County Not Detected
--- NOTE | 2021-02-03 17:29 | USCV_ITS ---
RivasJunior Age: 85 Gender: M : 1935 Exam Date: 02/03/2021 06:46 Ordering Phys: John Ansari DO Technologist: Mojgan Urena Exam Location: [facility] [place] Indication: PE HISTORY: Pulmonary embolism. PROCEDURES: Venous duplex imaging was performed in bilateral lower extremities. The following venous structures were evaluated: common femoral vein, profunda vein, proximal portion of the greater saphenous vein, superficial femoral vein, and the popliteal vein. In addition, the posterior tibial and peroneal trunk were evaluated. FINDINGS: Evidence of acute occlusive deep vein thrombosis in the right superficial femoral vein with normal flow dynamics. The remaining veins in each lower extremity are negative for DVT. CONCLUSIONS Acute right lower extremity deep venous thrombosis, mid SFV. Report provide to nurse at time of exam. Dr. Yolanda Johnston DO (Electronically Signed) Final Date: 03 February 2021 07:23 S
[2021-02-03] MEDS: potassium chloride ER 20 mEq Tablet PO (17:35)
--- NOTE | 2021-02-03 19:12 | PC.NURSE ---
Report to Mai MOON at this time.
[2021-02-04] VITALS: BP 123/76; PULSE 74; RESP 19; TEMP 36.6; O2SAT 96
[2021-02-04 04:00] VITALS: BP 146/80; PULSE 70; RESP 17; TEMP 36.4; O2SAT 94
[2021-02-04 04:40] LABS: ABG PCO2 42.1 mmHg (35-45); ABG PH Result 7.53 (7.35-7.45); Alveolar-Arterial Oxygen Gradi 14.4 mmHg (5-10); Arterial Blood Gas Hematocrit 38.9 % (42-52); Base Excess ABG 10.8 mmol/L (-2.0-2.0); Blood Gas Sample Site Brachial, right; Blood Gas Sample Type Arterial; Carboxyhemoglobin 1.1 %THgb (0.4-20.1); HCO3 ABG 34.7 mmol/L (22-26); Ionized Calcium Level - ABG 1.1 mmol/L (1.1-1.4); Methemoglobin 0.8 % (0.4-1.5); Oxygen Device NC; Oxygen Saturation ABG 94.8; PO2 ABG 65.8 mmHg (80.0-100.0); Potassium Level - ABG 3.9 mmol/L (3.5-5.0); Total Hemoglobin 12.7 g/dL (14-18)
[2021-02-04 06:06] LABS: Basophils % 0.2 %; Eosinophils % 0.1 %; Hematocrit 36.1 % (42.0-52.0); Hemoglobin 11.6 g/dL (11.7-16.6); Lymphocytes % 11.4 %; Mean Corpuscular HGB Conc 32.1 g/dL (30.0-36.0); Mean Corpuscular Hemoglobin 31.4 pg (28.0-34.0); Mean Corpuscular Volume 97.8 fl (80-94); Mean Platelet Volume 10.2 fL (7.4-10.4); Monocytes # 0.7 10^3/uL (0.2-0.9); Monocytes % 8.1 %; Neutrophils # 6.59 10^3/uL (1.8-7.7); Neutrophils % 77.2 %; Nucleated Red Blood Cells % 0 %; Platelet Count 161 10^3/cmm (130-400); Red Blood Count 3.69 10^6/uL (4.1-5.3); Red Cell Distribution Width 13.9 % (12.1-15.1); White Blood Count 8.5 10^3/uL (4.0-10.0)
[2021-02-04] MEDS: enoxaparin 80 mg/0.8 mL Syringe 70 MG SUBCUT (06:10)
[2021-02-04 06:23] LABS: Anion Gap 10.9 (5-19); Blood Urea Nitrogen 27 mg/dL (8-23); Carbon Dioxide 33 mmol/L (22-29); Chloride 101 mmol/L (98-107); Glucose 109 mg/dL (65-115); Osmolality Calculated 298 mOsm/kg (285-295); Potassium 3.9 mmol/L (3.5-5.1); Sodium 141 mmol/L (136-145)
[2021-02-04 06:29] LABS: Procalcitonin 0.06 ng/mL (0-0.5)
[2021-02-04 08:00] VITALS: BP 159/95; PULSE 73; RESP 18; TEMP 36.3; O2SAT 94
[2021-02-04] MEDS: carvedilol 25 mg Tablet PO (08:01)
[2021-02-04] MEDS: finasteride 5 mg Tablet PO (08:01)
[2021-02-04] MEDS: docusate sodium 100 mg Capsule PO (08:01)
[2021-02-04] MEDS: cloNIDine 0.1 mg Tablet PO (08:01)
[2021-02-04] MEDS: alfuzosin 10 mg ER Tablet PO (08:01)
[2021-02-04] MEDS: potassium chloride ER 20 mEq Tablet PO (08:01)
[2021-02-04] MEDS: spironolactone 25 mg Tablet 12.5 MG PO (08:02)
[2021-02-04] MEDS: losartan 50 mg Tablet 25 MG PO (08:02)
[2021-02-04] MEDS: FUROsemide 10 mg/mL SDV 4mL 40 MG IVP (08:02)
[2021-02-04 11:25] VITALS: O2SAT 87; O2SAT 90; O2SAT 94
[2021-02-04 12:00] VITALS: BP 116/67; PULSE 76; RESP 18; TEMP 36.6; O2SAT 92
--- NOTE | 2021-02-04 14:05 | P.DS_ITS ---
Discharge Providers Date of Admission: 02/03/21 13:01 Date of Discharge: February 04, 2021 Attending Provider at Admission: Dolly Martinez MD Attending Provider at Discharge: Dolly Martinez MD Primary Care Provider: Alphonso Glass MD Diagnoses at Discharge Discharge Diagnosis (1) Mitral valve regurgitation: Status: Acute Qualifiers: Cardiac valve disease etiology: nonrheumatic Qualified Code(s): I34.0 - Nonrheumatic mitral (valve) insufficiency (2) Diastolic CHF: Status: Acute Qualifiers: Heart failure chronicity: chronic Qualified Code(s): I50.32 - Chronic diastolic (congestive) heart failure (3) HTN (hypertension): Status: Acute Qualifiers: Hypertension type: essential hypertension Qualified Code(s): I10 - Essential (primary) hypertension (4) BPH (benign prostatic hyperplasia): Status: Acute Reason for Visit Reason for Visit: DIFF BREATHING Hospital Course Hospital Course Junior Keara Rivas is a 85 year old male with past medical history of uncontrolled hypertension, diastolic heart failure, BPH, mitral valve regurgitation and osteoarthritis presented to the ER today for shortness of breath. He is not on any oxygen at home and requiring 4 L nasal cannula here. Patient on valsartan 80 mg twice daily, Lasix 40 twice daily, 2.5 metolazone daily if worsening shortness of breath. He states he saw his hvac residential service technician 2 days ago and he was told he is fluid overloaded. Over the past 3 days he has been feeling progressively short of breath. He has not missed his diuretic doses at all. He has been diagnosed with pulmonary embolism in her ear today. He reports a 17 pound weight loss from fluid overload in last couple of months. Does report having a normal colonoscopy few years ago. Denies pain in calves. Denies history of PE denies history of cancer. Has occasional constipation and uses Dulcolax and MiraLAX for it. He does report a family history of lung cancer in brother, pancreatic cancer in sister with lung cancer and another brother with bone cancer. He himself has never been diagnosed with any type of cancer so far. Denies chest pain, abdominal pain, back pain. Has no other symptoms except shortness of breath. Patient would like to be DNR/DNI both him and his are in agreement. ED course: On arrival to ER temp 97.8, heart rate 68, respiratory 22, blood pressure 131/83, pulse ox 99% CTA performed which showed acute pulmonary embolism in upper and lower lobe pulmonary artery branches on both sides. There is no evidence of right heart strain RV to LV ratio is under 1. 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 Baseline troponin 61, delta troponin -5.74, albumin 3.4, sodium 134, potassium 3.2, CO2 34. ABG 7.54/41/119/35.7. WBC 11.7, hemoglobin 13.6. Chart review: Patient was recently seen by Dr. Chiang 01/31/2021. Mitral valve clipping versus replacement were discussed with the patient and he was referred to Dr. Gayle at [facility] for evaluation. Last Echo 11/29/2020: Normal left ventricle, EF 65%, grade 1 diastolic dysfunction, severe mitral valve regurgitation. Course: Patient was placed on subcu Lovenox full dose. Lower extremity Dopplers were positive for DVT in the right superficial femoral vein. Pulmonary embolism present in upper lobe and lower lobe pulmonary artery branches on both sides. Patient required 4 L of oxygen nasal cannula on admission and was weaned down to 2 L at discharge. He also qualified for home oxygen. Full dose Lovenox was stopped and patient was transitioned to Eliquis. He was also diuresed with IV Lasix. Lungs were totally clear to auscultation at discharge. Patient was optimized from fluid standpoint. He will be following up with his primary care physician within 1 week. I believe patient had an unprovoked DVT. Further work-up to be done by the primary. At time of discharge was present and I discussed everything that was done during hospital stay with the including his diagnosis medications and further plan. They both were in agreement and understood. Physical Exam Narrative: EXAM NARRATIVE: General: Alert oriented x3, HEENT: Normocephalic, atraumatic, EOMI, breathing 2 L nasal cannula Cardio: Regular rate rhythm, normal S1-S2, no murmurs rubs gallops, Respiratory: Chest clear to auscultation bilaterally no wheezing no rhonchi no crackles present. GI: Abdomen soft, nontender, nondistended, normoactive bowel sounds present all 4 quadrants, Behavior: Appropriate and cooperative Extremities: no edema, no cyanosis, Discharge Data Data Completed and Pending: Completed Studies During Hospitalization Category Date Time Status CT angio chest PE protcl [id number] Stat Cat Scan 02/02/21 15:40 Completed XR chest 1V devang ble [id number] Routine Exams 02/03/21 06:44 Completed XR chest 1V devang ble [id number] Stat Exams 02/02/21 13:26 Completed XR chest 1V devang ble [id number] Urgent Exams 02/03/21 07:55 [place] [id number] Routin e Ultrasound 02/03/21 17:29 Completed Pending at discharge Category Date Time Status CV. echo complete * [id number] Urgent Ultrasound 02/02/21 17:29 Taken Labs from last 24 hours 02/04/21 02/04/21 02/04/21 05:18 05:18 04:34 WBC 8.5 RBC 3.69 L Hgb 11.6 L Hct 36.1 L MCV 97.8 H MCH 31.4 MCHC 32.1 RDW 13.9 Plt Count 161 MPV 10.2 Neut % (Auto) 77.2 Lymph % (Auto) 11.4 Cloud % (Auto) 8.1 Eos % (Auto) 0.1 Baso % (Auto) 0.2 Neut # (Auto) 6.59 Lymph # (Auto) 1.0 Cloud # (Auto) 0.7 Eos # (Auto) 0.0 Baso # (Auto) 0.0 Nucleated RBC % (a uto) 0 Nucleated RBCs # 0.0 Specimen Type Arterial Sample Site Brachial, right ABG pH 7.53 H ABG pCO2 42.1 ABG pO2 65.8 L ABG HCO3 34.7 H ABG O2 Saturation 94.8 ABG Base Excess 10.8 H Pedro Test N/a A-a O2 Gradient 14.4 H Hematocrit 38.9 L Hgb O2 Saturation 93.0 L Carboxyhemoglobin 1.1 Methemoglobin 0.8 Total Hemoglobin 12.7 L Sodium 141 140.0 Potassium 3.9 3.9 Glucose 109 122.0 H Ionized Calcium 1.1 O2 Delivery Device Nc O2 Liters/Min 3.0 FiO2 32.0 Auxiliary Operator ID Tamma Chloride 101 Carbon Dioxide 33 H Anion Gap 10.9 BUN 27 H Creatinine 0.7 GFR Calculation Not Reportable Calculated Osmolal ity 298 H Calcium 8.0 L Procalcitonin 0.06 Nasal/Oral COVID-1 9 PCR 02/03/21 00:30 WBC RBC Hgb Hct MCV MCH MCHC RDW Plt Count MPV Neut % (Auto) Lymph % (Auto) Cloud % (Auto) Eos % (Auto) Baso % (Auto) Neut # (Auto) Lymph # (Auto) Cloud # (Auto) Eos # (Auto) Baso # (Auto) Nucleated RBC % (a uto) Nucleated RBCs # Specimen Type Sample Site ABG pH ABG pCO2 ABG pO2 ABG HCO3 ABG O2 Saturation ABG Base Excess Pedro Test A-a O2 Gradient Hematocrit Hgb O2 Saturation Carboxyhemoglobin Methemoglobin Total Hemoglobin Sodium Potassium Glucose Ionized Calcium O2 Delivery Device O2 Liters/Min FiO2 Auxiliary Operator ID Chloride Carbon Dioxide Anion Gap BUN Creatinine GFR Calculation Calculated Osmolal ity Calcium Procalcitonin Nasal/Oral COVID-1 9 PCR Not detected Vitals: Last Vital Signs Temp 97.9 F 02/04/21 12:00 Pulse 76 02/04/21 12:00 Resp 18 02/04/21 12:00 BP 116/67 02/04/21 12:00 Pulse Ox 92 02/04/21 12:00 Discharge Plan Discharge Patient Disposition: Home Condition: Stable Prescriptions: New Eliquis 5 mg tablet 5 mg PO BID 30 Days Qty: 60 RF: 2 Continued docusate sodium [Colace] 100 mg capsule 100 mg PO BID RF: 0 alfuzosin 10 mg tablet extended release 24 hr 10 mg PO DAILY Qty: 90 RF: 3 carvedilol 25 mg tablet 25 mg PO BID@, RF: 0 spironolactone 25 mg tablet 12.5 mg PO BID@ RF: 0 furosemide 40 mg tablet 40 mg PO BID@,12 RF: 0 potassium chloride 20 mEq tablet extended release 20 meq PO BID@,12 RF: 0 valsartan 80 mg tablet 80 mg PO BID Qty: 180 RF: 3 metolazone 2.5 mg Tablet See Rx Instructions .ROUTE .COMPLEX RF: 0 Miralax 17 gram Powder In Packet 17 g PO QPM RF: 0 finasteride 5 mg Tablet 5 mg PO DAILY@17 RF: 0 Metamucil 3.4 gram/5.4 gram Powder 1 tbsp PO BID RF: 0 Discharge Orders: Discharge Order (Routine); Ordered 02/04/21 Ordered By: Dolly Martinez Other Ambulatory Orders: DME: Oxygen (Order) Location: None Selected Ordered By: Dolly Martinez Referrals: Alphonso Glass MD [Primary Care Provider] - 02/28/21 10:15 am (DX with unprovoked DVT/PE. On Eliquis. Please do further workup as deemed necessary ) Patient Instructions: Apixaban (By mouth), Mitral Regurgitation (DC), Pulmonary Embolism (DC), Enlarged Prostate (BPH) (DC), Deep Vein Thrombosis (DC), Opioid Safety Activity Restrictions/Additional Instructions: You have a blood clot in your legs and lungs. It is really important you take your newly prescribed medication Eliquis everyday. You are to take 10 mg twice a day for 7 days and thereafter take 5 mg tablet twice a day. Instructions have been sent to your pharmacy as well.Please see your PCP in next 1 week. Discharge Attestations Time Spent in Discharge Care*: greater than 30 min Status at Discharge: Cognitive status at discharge: cognitively intact , Functional status at discharge: independent ambulation Overall status at discharge: patient is progressing back to baseline Quality Metrics Clinical Quality Measures During this hospital stay, did patient experience: VTE Contraindication to Overlap Therapy: Overlap therapy prescribed VTE Discharge Education: Education about anticoagulant therapy/Care Notes given, Education about treatment options/disease process and Follow-up arranged Deep Vein Thrombosis/Pulmonary Embolism Present on Admission: Yes Contraindication to Pharm VTE Prophylaxis: VTE prophylaxis given Coding Level of Care Code Acute Chg FW DC note Diagnoses Mitral valve regurgitation I34.0 Cardiac valve disease etiology: nonrheumatic Diastolic CHF I50.32 Heart failure chronicity: chronic HTN (hypertension) I10 Hypertension type: essential hypertension BPH (benign prostatic hyperplasia) N40.0
--- NOTE | 2021-02-04 14:46 | PC.CHAP ---
Pastoral Care Encounter/Spiritual Assessment Type of Contact [] Declined poultry eviscerator visit [] Patient/Family/Request visit [] Outpatient visit [xx] Follow-up visit [] Physician referral [] Code/Alert [] Routine visit [] Staff referral [] Actively dying [xx] Patient sleeping [] Family support [] [] Out of room [] Palliative care [] [] Receiving care in room [] Pre-surgical visit [] Trauma [] Long length of stay [] ICU visit [] Other: Relational/Emotional Strength [] Patient feels connected with others/family/visitors/staff [] Distress [] Loneliness/isolation [] Abandonment Spirituality of Patient [] Person of Verito [] Attends Judaism of their [place] [] Believes in Prayer [] Reads Bible or Tenriism materials [] There are Spiritual issues to be addressed Gate Tender Interventions [] Prayer [] Active listening [] Non-anxious presence [] Spiritual/emotional support [] Crisis/trauma care [] Spiritual counseling [] Bereavement support [] Provided bereavement packet [] Provided Bible/devotional materials [] Provided toy/stuffed animal, coloring book to patient or family member [] Provided Communion [] Anointing/[place] [] Salvation [] Completed spiritual assessment [] Other: Impact on Illness or Injury [] Angry [] Fearful [] Anxious [] Often cries [] Exhaustion [] Unable to work [] Unable to attend presybeterian [] Unable to walk/stand [] Unable to read [] Unable to drive [] Unable to eat/drink [] Unable to sleep [] Unable to be with family [] Patient intubated [] Other: Summary Patient sleeping. Not isolated as present. Follow up later. Time spent with patient
[2021-02-04 14:58] VITALS: BP 116/67; PULSE 76; RESP 18; TEMP 36.6; O2SAT 92
--- NOTE | 2021-02-07 10:36 | PC.SOCIAL ---
discharge follow up call made, spoke with patient. patient reports he is feeling good. patient is taking eliquis 10mg bid x 7days then 5mg bid there after. patient has follow up appointment with pcp on 02-28, scientific technical writer attempted to make appointment sooner and Dr. saez isn't available until 02-28. patient is using O2 at 2L and tolerating well. patient denies sob. pt denies questions or concerns.
[2021-05-01 14:35] LABS: Add Urine Microscopic? NO; Charge for UA Resulting for Rev
[2021-05-01 14:59] LABS: Bilirubin Urine Neg (Negative); Blood Urine Neg (Negative); Glucose Urine UA Norm (Normal); Ketones Urine Negative (Negative); Leukocyte Esterase Urine Negative (Negative); Nitrate Urine Negative (Negative); Protein Urine Neg (Negative); Specific Gravity, Urine 1.005 (1.005-1.030); Urine Appearance Clear (CLEAR); Urine Color Colorless (Yellow); Urobilinogen Urine Norm (Negative); pH Urine 7 (5-7)
== END 2021-02-04 14:59 | disposition home or self-care (01) | DRG 176 ==
LOC: ER 13:48 → MEDSURG 02-03 08:16
PROVIDERS: Specialist; Admitting Provider Internal Medicine; Emergency Provider Family Medicine; PCP Family Medicine; Visit Provider Internal Medicine
DX: I26.99 Other pulmonary embolism without acute cor pulmonale (principal); I82.411 Acute embolism and thrombosis of right femoral vein; I50.32 Chronic diastolic (congestive) heart failure; I34.0 Nonrheumatic mitral (valve) insufficiency; I11.0 Hypertensive heart disease with heart failure; E87.6 Hypokalemia; E27.9 Disorder of adrenal gland, unspecified; N40.0 Benign prostatic hyperplasia without lower urinary tract symptoms; M19.90 Unspecified osteoarthritis, unspecified site; Z80.1 Family history of malignant neoplasm of trachea, bronchus and lung; Z80.0 Family history of malignant neoplasm of digestive organs; Z66 Do not resuscitate
CPT/HCPCS: 36415; 36600; 71045; 71275; 80048; 80051; 80053; 81003; 82330; 82550; 82805; 83735; 83880; 84145; 84484; 85025; 86403; 87086; 87449; 87635; 87641; 93005; 93306; 93970; 96372; 99285; G0378; J1650; J1940; Q9967

== ENCOUNTER → 2021-06-14 10:35 | Outpatient (BNVA) | payer MEDICARE, OTHER, SELFPAY | PROVIDERS: PCP Family Medicine; Visit Provider Internal Medicine Cardiovascular Disease | DX: I26.99 Other pulmonary embolism without acute cor pulmonale (principal); I50.30 Unspecified diastolic (congestive) heart failure; I82.409 Acute embolism and thrombosis of unspecified deep veins of unspecified lower extremity; I87.2 Venous insufficiency (chronic) (peripheral); Z20.822 Contact with and (suspected) exposure to COVID-19 | CPT/HCPCS: 87635 ==

== ENCOUNTER 2021-06-16 08:55 | Outpatient (CLI) | payer MEDICARE, OTHER, SELFPAY ==
--- NOTE | 2021-06-16 13:32 | PFTS_ITS ---
Date of Study:06/16/21 Date of Dictation: 06/16/2021 MECHANICS: Post bronchodilator forced vital capacity (FVC) is reduced. Post bronchodilator forced expiratory volume in one second (FEV1) is severely reduced 47%. Post BD FEV1 1.20 L FEV1/FVC is normal.. -There is no significant bronchodilator response FLOW VOLUME LOOP: Normal LUNG VOLUMES: Not measured DIFFUSING CAPACITY FOR CARBON MONOXIDE: Not measured . INTERPRETATION: The post-bronchodilator spirometry consistent with restrictive pattern with postbronchodilator FEV1 47%. Patient unable to do pleth and despite attempting DLCO several times with no results. MTDD
== END 2021-06-16 08:56 | disposition home or self-care (01) ==
LOC: RT 09:09
PROVIDERS: PCP Family Medicine; Visit Provider Internal Medicine
DX: Z86.711 Personal history of pulmonary embolism (principal)
CPT/HCPCS: 94060; J7611